=== PATIENT | female | born 1990 | race Two or more races ===

== ENCOUNTER 2022-12-28 07:23 | Outpatient (CLI) | payer OTHER | END 2022-12-28 07:30 | disposition home or self-care (01) | LOC: LAB 07:23 | DX: D64.9 Anemia, unspecified (principal); Z32.00 Encounter for pregnancy test, result unknown ==

== ENCOUNTER → 2023-01-19 07:06 | Outpatient (CLI) | payer OTHER | END | disposition home or self-care (01) | LOC: LAB 07:06 | PROVIDERS: ATTEND Student in an Organized Health Care Education/Training Program | DX: Z34.01 Encounter for supervision of normal first pregnancy, first trimester (principal) ==

== ENCOUNTER 2023-03-24 06:33 | Outpatient (CLI) | payer OTHER | END 2023-03-24 06:35 | disposition home or self-care (01) | LOC: LAB 06:33 | DX: D64.9 Anemia, unspecified (principal) ==

== ENCOUNTER 2023-05-05 07:08 | Outpatient (CLI) | payer OTHER | END 2023-05-05 07:09 | disposition home or self-care (01) | LOC: LAB 07:08 | DX: D50.0 Iron deficiency anemia secondary to blood loss (chronic) (principal) ==

== ENCOUNTER 2023-05-22 10:25 | Outpatient (CLI) | payer OTHER | END 2023-05-22 10:29 | disposition home or self-care (01) | LOC: LAB 10:25 | DX: Z34.82 Encounter for supervision of other normal pregnancy, second trimester (principal) ==

== ENCOUNTER 2023-06-12 07:30 | Outpatient (CLI) | payer OTHER ==
[2023-06-12 09:01] LABS: HEMATOCRIT 30.8 % (36.0-45.00); HEMOGLOBIN 10.5 g/dL (12.0-15.00); MEAN CELL VOLUME 90.9 fL (80.00-100.00); MEAN CORPUSCULAR HEMOGLOBIN 31.1 pg (27.00-32.0); MEAN CORPUSCULAR HGB CONC 34.2 g/dl (32.0-36.0); PLATELET COUNT 229 K/uL (150-450); RED BLOOD COUNT 3.39 M/uL (4.00-6.00); RED CELL DISTRIBUTION WIDTH 15.5 % (11.5-14.5)
[2023-06-12 09:55] LABS: % SATURACION 46.4 % (15-50); ALBUMIN 2.6 gm/dL (3.4-5.0); BILIRUBIN TOTAL 0.27 mg/dL (0.3-1.2); CALCIUM 8.4 mg/dL (8.5-10.1); CREATININE SERUM 0.46 mg/dL (0.55-1.02); GFR 158.44; GLOBULINA 3.9 G/DL (2.4-3.5); POTASSIUM 3.91 mEq/L (3.5-5.1); TOTAL PROTEIN 6.5 gm/dL (6.4-8.2)
== END 2023-06-12 07:35 | disposition home or self-care (01) ==
LOC: LAB 07:30
DX: D64.9 Anemia, unspecified (principal); D68.2 Hereditary deficiency of other clotting factors

== ENCOUNTER 2023-07-17 10:17 | Outpatient (CLI) | payer OTHER ==
[2023-07-17 10:53] LABS: HEMATOCRIT 29.6 % (36.0-45.00); MEAN CELL VOLUME 91.7 fL (80.00-100.00); MEAN CORPUSCULAR HEMOGLOBIN 31.1 pg (27.00-32.0); MEAN CORPUSCULAR HGB CONC 33.9 g/dl (32.0-36.0); PLATELET COUNT 214 K/uL (150-450); RED BLOOD COUNT 3.23 M/uL (4.00-6.00); RED CELL DISTRIBUTION WIDTH 17.7 % (11.5-14.5)
== END 2023-07-17 10:19 | disposition home or self-care (01) ==
LOC: LAB 10:17
DX: D50.8 Other iron deficiency anemias (principal)

== ENCOUNTER 2023-07-24 09:03 | Outpatient (CLI) | payer OTHER ==
[2023-07-24 11:08] LABS: HEMATOCRIT 31.7 % (36.0-45.00); HEMOGLOBIN 10.6 g/dL (12.0-15.00); MEAN CELL VOLUME 90.9 fL (80.00-100.00); MEAN CORPUSCULAR HEMOGLOBIN 30.5 pg (27.00-32.0); MEAN CORPUSCULAR HGB CONC 33.6 g/dl (32.0-36.0); PLATELET COUNT 224 K/uL (150-450); RED BLOOD COUNT 3.49 M/uL (4.00-6.00); RED CELL DISTRIBUTION WIDTH 17.8 % (11.5-14.5)
[2023-07-24 11:10] LABS: PH,URINE 7.5 (5.0-8.0); URINE APPEARANCE Clear; URINE BILIRRUBIN Negative (NEGATIVE); URINE BLOOD Negative; URINE COLOR Yellow; URINE GLUCOSE Negative (NEGATIVE); URINE LEUKOCYTE Negative; URINE NITRATE Negative; URINE PROTEIN Negative (NEGATIVE)
[2023-07-24 11:12] LABS: URINE BACTERIA 74.3 uL (0.0-1933); URINE EPITHELIAL CELLS 9.5 uL (0.0-38.8)
[2023-07-24 11:16] LABS: URINE RBC 0.8 uL (0.0-20.8)
== END 2023-07-24 09:05 | disposition home or self-care (01) ==
LOC: LAB 09:03
PROVIDERS: ATTEND Obstetrics & Gynecology
DX: Z34.83 Encounter for supervision of other normal pregnancy, third trimester (principal)

== ENCOUNTER 2023-08-31 12:20 | Outpatient (CLI) | payer OTHER ==
[2023-08-31 13:06] LABS: MEAN CELL VOLUME 89.7 fL (80.00-100.00); MEAN CORPUSCULAR HGB CONC 33.6 g/dl (32.0-36.0); PLATELET COUNT 392 K/uL (150-450); RED CELL DISTRIBUTION WIDTH 18.8 % (11.5-14.5)
[2023-08-31 13:07] LABS: HEMOGLOBIN 8.8 g/dL (12.0-15.00); MEAN CORPUSCULAR HEMOGLOBIN 30.3 pg (27.00-32.0)
[2023-08-31 13:25] LABS: FERRITIN 26.8 NG/ML (8-252)
== END 2023-08-31 12:21 | disposition home or self-care (01) ==
LOC: LAB 12:20
DX: D50.9 Iron deficiency anemia, unspecified (principal); D51.8 Other vitamin B12 deficiency anemias

== ENCOUNTER → 2023-09-04 12:06 | Outpatient (CLI) | payer OTHER ==
[2023-09-04 13:38] LABS: HEMATOCRIT 30.6 % (36.0-45.00); HEMOGLOBIN 10.3 g/dL (12.0-15.00); MEAN CELL VOLUME 88.7 fL (80.00-100.00); MEAN CORPUSCULAR HEMOGLOBIN 29.9 pg (27.00-32.0); MEAN CORPUSCULAR HGB CONC 33.7 g/dl (32.0-36.0); PLATELET COUNT 569 K/uL (150-450); RED BLOOD COUNT 3.45 M/uL (4.00-6.00); RED CELL DISTRIBUTION WIDTH 18.9 % (11.5-14.5)
[2023-09-04 14:08] LABS: ALBUMIN 3.1 gm/dL (3.4-5.0); BILIRUBIN TOTAL 0.31 mg/dL (0.3-1.2); CREATININE SERUM 0.57 mg/dL (0.55-1.02); GFR 122.92; GLOBULINA 4.2 G/DL (2.4-3.5); POTASSIUM 4.28 mEq/L (3.5-5.1); TOTAL PROTEIN 7.3 gm/dL (6.4-8.2)
== END | disposition home or self-care (01) ==
LOC: LAB 12:06
DX: Z39.0 Encounter for care and examination of mother immediately after delivery (principal)

== ENCOUNTER → 2023-09-14 07:48 | Outpatient (CLI) | payer OTHER ==
[2023-09-14 08:35] LABS: HEMATOCRIT 33.1 % (36.0-45.00); MEAN CELL VOLUME 87.5 fL (80.00-100.00); MEAN CORPUSCULAR HEMOGLOBIN 29.1 pg (27.00-32.0); MEAN CORPUSCULAR HGB CONC 33.3 g/dl (32.0-36.0); PLATELET COUNT 520 K/uL (150-450); RED BLOOD COUNT 3.78 M/uL (4.00-6.00); RED CELL DISTRIBUTION WIDTH 17.5 % (11.5-14.5)
== END | disposition home or self-care (01) ==
LOC: LAB 07:48
PROVIDERS: ATTEND Obstetrics & Gynecology
DX: D50.9 Iron deficiency anemia, unspecified (principal)

== ENCOUNTER → 2024-06-08 07:49 | Outpatient (CLI) | payer OTHER ==
[2024-06-08 08:35] LABS: HEMATOCRIT 37.2 % (36.0-45.00); MEAN CELL VOLUME 91.8 fL (80.00-100.00); MEAN CORPUSCULAR HGB CONC 34.9 g/dl (32.0-36.0); PLATELET COUNT 215 K/uL (150-450); RED BLOOD COUNT 4.06 M/uL (4.00-6.00); RED CELL DISTRIBUTION WIDTH 13.1 % (11.5-14.5)
[2024-06-08 08:35] LABS: PH,URINE 5.5 (5.0-8.0); URINE APPEARANCE Clear; URINE BILIRRUBIN Negative (NEGATIVE); URINE BLOOD Negative; URINE COLOR Yellow; URINE GLUCOSE Negative (NEGATIVE); URINE KETONE Trace (NEGATIVE); URINE LEUKOCYTE Trace; URINE NITRATE Negative; URINE PROTEIN Negative (NEGATIVE); URINE UROBILINOGEN 0.2 E.U./dl
[2024-06-08 08:37] LABS: URINE BACTERIA 54.1 uL (0.0-1933); URINE EPITHELIAL CELLS 26.7 uL (0.0-38.8); URINE RBC 2.1 uL (0.0-20.8); URINE WBC 20.3 uL (0.0-23.2)
[2024-06-08 09:30] LABS: ALBUMIN 4.2 gm/dL (3.4-5.0); BILIRUBIN TOTAL 0.58 mg/dL (0.3-1.2); CALCIUM 8.9 mg/dL (8.5-10.1); CREATININE SERUM 0.6 mg/dL (0.55-1.02); GFR 115.85; GLOBULINA 3.7 G/DL (2.4-3.5); POTASSIUM 4.05 mEq/L (3.5-5.1); TOTAL PROTEIN 7.9 gm/dL (6.4-8.2); TSH 4.17 uIU/mL (0.358-3.74)
[2024-06-09 23:05] LABS: chla t Negative (Negative); neiss Negative (Negative)
[2024-06-11 23:04] LABS: hav igm Negative (Negative); hcv Reactive (Non Reactive); hep b c Negative (Negative); hep b s ag Negative (Negative)
== END | disposition home or self-care (01) ==
LOC: LAB 07:49
PROVIDERS: ATTEND Obstetrics & Gynecology
DX: E78.5 Hyperlipidemia, unspecified (principal); E03.9 Hypothyroidism, unspecified; E11.9 Type 2 diabetes mellitus without complications; N93.0 Postcoital and contact bleeding; E55.9 Vitamin D deficiency, unspecified; Z11.3 Encounter for screening for infections with a predominantly sexual mode of transmission; A56.09 Other chlamydial infection of lower genitourinary tract; A54.03 Gonococcal cervicitis, unspecified; K75.9 Inflammatory liver disease, unspecified; A53.9 Syphilis, unspecified; B20 Human immunodeficiency virus [HIV] disease; A64 Unspecified sexually transmitted disease

== ENCOUNTER 2024-09-14 10:25 | Outpatient (CLI) | payer OTHER ==
[2024-09-14 12:32] LABS: FREE TRIODOTIRONINE 2.8 pg/ml (2.18-3.98); T4 FREE 0.83 NG/ML (0.76-1.46); TSH 3.26 uIU/mL (0.358-3.74)
[2024-09-16 08:09] LABS: HEPATITIS C VIRUS ANTIBODY Non Reactive (Non Reactive)
[2024-09-16 10:04] LABS: ANTI THYROID PEROXIDASE 150 IU/mL (0-34)
== END 2024-09-14 10:26 | disposition home or self-care (01) ==
LOC: LAB 10:25
PROVIDERS: ATTEND Obstetrics & Gynecology
DX: R94.5 Abnormal results of liver function studies (principal); E03.9 Hypothyroidism, unspecified

== ENCOUNTER → 2025-07-09 07:55 | Outpatient (CLI) | payer OTHER ==
[2025-07-09 08:39] LABS: BASO % 0.4 % (0.1-1.2); EOS # 0.60 (0.04-0.54); EOS % 10.9 % (0.7-7.0); LYMPH # 1.45 (1.18-3.74); LYMPH % 26.4 % (19.3-53.1); MEAN PLATELET VOLUME 10.40 fl (9.4-12.4); MONO # 0.44 (0.24-0.82); MONO % 8.0 % (4.7-12.5); NEUT # 2.97 (1.56-6.13); NEUT % 53.9 % (34.0-71.1); RED CELL DISTRIBUTION WIDTH 12.1 % (11.6-14.4)
[2025-07-09 09:00] LABS: INR 1.14
[2025-07-09 09:09] LABS: % SATURACION 25.0 % (15-50); ALT/SGPT 21.0 U/L (12-78); AST/SGOT 19.0 U/L (15-37); BILIRUBIN TOTAL 0.45 mg/dL (0.3-1.2); BUN CREA RATIO 23.0 (7.0-25.0); CREATININE SERUM 0.52 mg/dL (0.55-1.02); FE 96.0 ug/dl (50-170); GFR 134.98; GLOBULINA 3.4 G/DL (2.4-3.5); GLUCOSE FASTING 94.0 mg/dL (65-100); OSMOLALITY SERUM 281.0 MOSM/KG (275-295)
[2025-07-09 09:49] LABS: FOLIC ACID 13.45 ng/ml (4.78-20)
== END | disposition home or self-care (01) ==
LOC: LAB 07:55
DX: D64.9 Anemia, unspecified (principal); D68.2 Hereditary deficiency of other clotting factors; O00.01 Abdominal pregnancy with intrauterine pregnancy